=== PATIENT | female | born 1980 | race Caucasian/White ===

== ENCOUNTER → 2018-03-31 | Outpatient (CLI) | payer OTHER ==
[2016-10-24 13:02] VITALS: BMI 29.8
[~2018-03-31] MED LIST: CA C1TAB6 PO; CALC-515 PO; IBUP800T37 PO; PREN-127 PO
== END ==
LOC: RAD 08:16
PROVIDERS: ATTEND Obstetrics & Gynecology
DX: Z02.9 Encounter for administrative examinations, unspecified (principal)

== ENCOUNTER → 2018-03-31 | Outpatient (CLI) | payer OTHER ==
[2016-10-24 13:02] VITALS: BMI 29.8
[2018-03-31 09:33] LABS: PLATELET COUNT, AUTOMATED 192 K/uL (150-450)
== END ==
LOC: LAB 09:10
PROVIDERS: ATTEND Obstetrics & Gynecology
DX: Z34.91 Encounter for supervision of normal pregnancy, unspecified, first trimester (principal); R82.79 Other abnormal findings on microbiological examination of urine
CPT/HCPCS: 36415; 81001; 85025; 86592; 86762; 86850; 86900; 86901; 87088; 87340